=== PATIENT | female | born 1965 | race Caucasian/White ===

== ENCOUNTER 2019-03-17 11:29 | Emergency (ER) | payer BC ==
[2019-03-17 11:35] VITALS: BP 144/86
--- NOTE | 2019-03-17 13:15 | ER Document Report ---
HPI - HPI Time Seen by Provider: 03/17/19 12:33 Pain Level: 2 Context: Patient is a 53-year-old female with a history of COPD, cardiac disease, [place], asthma who presents to the emergency department with a chief complaint of cough. Patient states she has had a cough since Monday with congestion, earache and runny nose. Patient states she was seen by her primary care physician the day and symptoms started and was prescribed prednisone which she is still taking, Fl onase and a nasal spray. Patient reports she does smoke about 1 pack/day. Patient states she was told on Monday that the symptoms are consistent with a viral illness. Patient denies fever. Patient reports the cough does keep her up at night. Patient denies significant shortness of breath or chest pain. - CONSTITUTIONAL Constitutional: REPORTS: Chills. DENIES: Fever - EENT EENT: REPORTS: Ear Pain - right. DENIES: Sore Throat, Eye problems - NEURO Neurology: REPORTS: Headache. DENIES: Weakness, Vision blurred, Dizzinesss / Vertigo - CARDIOVASCULAR Cardiovascular: DENIES: Chest pain - RESPIRATORY Respiratory: REPORTS: Trouble Breathing, Coughing - GASTROINTESTINAL Gastrointestinal: DENIES: Abdominal Pain, Black / Bloody Stools - URINARY Urinary: DENIES: Dysuria, Urgency, Frequency - REPRODUCTIVE Reproductive: DENIES: : - MUSCULOSKELETAL Musculoskeletal: DENIES: Extremity pain Past Medical History - General Information source: Patient - Social History Smoking Status: Current Every Day Smoker Chew tobacco use (# tins/day): No Frequency of alcohol use: None Drug Abuse: None Lives with: Family Family History: None Patient has suicidal ideation: No Patient has homicidal ideation: No - Past Medical History Cardiac Medical History: Reports: Hx Heart Attack, Hx Hypercholesterolemia Pulmonary Medical History: Reports: Hx COPD EENT Medical History: Reports: None Neurological Medical History: Reports: None Endocrine Medical History: Reports: None Renal/ Medical History: Reports: None. Denies: Hx Peritoneal Dialysis Malignancy Medical History: Reports: None GI Medical History: Reports: Hx Gastroesophageal Reflux Disease Musculoskeletal Medical History: Reports None Skin Medical History: Reports None Psychiatric Medical History: Reports: Hx Depression Traumatic Medical History: Reports: None Infectious Medical History: Reports: None Past Surgical History: Reports: Hx Abdominal Surgery - right inguinal hernia, Hx Cardiac Catheterization - x 2 with stent placed, Hx Section - x3, Hx Cholecystectomy, Hx Hysterectomy, Hx Orthopedic Surgery - achilles, carpel tunnel, Hx Tonsillectomy Vertical Provider Document - CONSTITUTIONAL Agree With Documented VS: Yes Exam Limitations: No Limitations General Appearance: No Apparent Distress - INFECTION CONTROL TRAVEL OUTSIDE OF THE [place] IN LAST 30 DAYS: No - HEENT HEENT: Atraumatic, Normocephalic, PERRLA - NECK Neck: Normal Inspection - RESPIRATORY Respiratory: Breath Sounds Normal, No Respiratory Distress - CARDIOVASCULAR Cardiovascular: Regular Rate, Regular Rhythm - GI/ABDOMEN Gastrointestinal: Abdomen Soft, Abdomen Non-Tender, Normal Bowel Sounds - NEURO Level of Consciousness: Awake, Alert, Appropriate - DERM Integumentary: Warm, Dry, No Rash Course - Re-evaluation Re-evalutation: 03/17/19 13:53 Upon initial evaluation patient is sitting upright in no acute distress. Patient's lungs were clear to auscultation. I did inform the patient that at this time there are no signs of infection. I did inform the patient to continue her oral steroids as prescribed, Flonase, nasal sprays and I will give her a p rescription for a cough syrup. I did inform the patient do not drive or operate heavy machinery while on this cough syrup and to only take as needed as it can be extremely irritating. Patient's allergy list does report to codeine. Patient states she has taken Tylenol with codeine and other codeine products before. Patient reports she does not sure why says that she is allergic to this. Patient states she would like to trach prescription. - Vital Signs Vital signs: Temp Pulse Resp BP Pulse Ox 98.6 F 59 L 15 144/86 H 96 03/17/19 11:34 03/17/19 11:34 03/17/19 11:34 03/17/19 11:34 03/17/19 11:34 Discharge - Discharge Clinical Impression: Cough, Bronchitis URI (upper respiratory infection) Qualifiers: URI type: unspecified URI Qualified Code(s): J06.9 - Acute upper respiratory i nfection, unspecified Condition: Stable Disposition: HOME, SELF-CARE Additional Instructions: Today you are seen the emergency department for cough. Your symptoms are consistent with a bronchitis and upper respiratory infection. Please continue to use the prednisone, nasal spray and Flonase as this seems to be helping with your symptoms. I will give you a prescription for a oral cough syrup. Please take this only as prescribed. Please continue to push liquids. If you smoke please stop as this can slow the healing of the bronchitis. Please return to the emergency department or your primary care physician if you develop fever, shortness of breath, chest pain, bloody sputum or if you not feeling better after 7 to 10 days of the symptoms starting as this can develop into pneumonia. You are being prescribed a codeine cough syrup. Please only take as prescribed and only as needed. This can make you drowsy so do not work, drive a vehicle or operate heavy machinery while taking this medication. Please do not take with other sedating medications. Bronchitis You have acute bronchitis. This disease is an infection or inflammation of the air passageways in your lungs. Symptoms usually include cough, low grade fever, shortness of breath, and wheezing. The cough usually persists for a couple of weeks. Most cases of bronchitis get better without antibiotics. We prescribe antibiotics when we believe bacteria are damaging your airways, or if there's high risk the bronchitis will worsen into pneumonia. Increase your fluid intake. A cool mist humidifier may make your lungs more comfortable. An expectorant (cough medicine that loosens phlegm) can help. If you smoke, STOP!!! Recovery from bronchitis can be somewhat slow, but you should see improvement within a day or two. Repeated episodes of bronchitis may result in lung damage -- for example, chronic bronchitis, recurrent pneumonias, or emphysema. Call the doctor if you develop increasing fever, shortness of breath, chest pain, bloody sputum, or otherwise worsen. If you have not improved at all after several days, contact the physician. Prescriptions: Codeine/Promethazine HCl [Promethazine-Codeine Syrup] 5 ml PO Q6 PRN #1 bottle PRN Reason: Forms: Return to Work
== END 2019-03-17 13:25 | disposition home or self-care (01) ==
LOC: ER 11:29
DX: J44.0 Chronic obstructive pulmonary disease with (acute) lower respiratory infection (principal); R05 Cough; R09.81 Nasal congestion; R09.89 Other specified symptoms and signs involving the circulatory and respiratory systems; R68.83 Chills (without fever); R51 Headache; H92.01 Otalgia, right ear; I25.2 Old myocardial infarction; F17.200 Nicotine dependence, unspecified, uncomplicated
CPT/HCPCS: 99283

== ENCOUNTER 2019-03-20 19:22 | Emergency (ER) | payer BC ==
--- NOTE | 2019-03-20 21:54 | EKG REPORT ---
SEVERITY:- NORMAL ECG - SINUS RHYTHM : Confirmed by: Harry Hernandez MD 20-Mar-2019 21:54:01
[2019-03-20 21:55] LABS: ABSOLUTE BASOPHILS # (AUTO) 0.2 10^3/uL (0.0-0.2); ABSOLUTE EOSINOPHILS # (AUTO) 0.4 10^3/uL (0.0-0.6); ABSOLUTE LYMPHOCYTES (AUTO) 5.7 10^3/uL (0.5-4.7); ABSOLUTE MONOCYTES (AUTO) 1.2 10^3/uL (0.1-1.4); ABSOLUTE NEUT (AUTO) 7.9 10^3/uL (1.7-8.2); BASOPHILS % (AUTO) 1.1 % (0-2); EOSINOPHILS % (AUTO) 2.6 % (0-6); HEMATOCRIT 43.5 % (36.0-47.0); HEMOGLOBIN 14.7 g/dL (12.0-15.5); LYMPHOCYTES % (AUTO) 37.3 % (13-45); MEAN CORPUSCULAR HGB CONC 33.8 g/dL (32.0-36.0); MEAN CORPUSCULAR VOLUME 89 fl (80-97); MONOCYTES % (AUTO) 7.9 % (3-13); PLATELET COUNT 382 10^3/uL (150-450); RED CELL DISTRIBUTION WIDTH 13.8 % (11.5-14.0); SEGMENTED NEUTROPHILS % (AUTO) 51.1 % (42-78); TOTAL CELLS COUNTED % (AUTO) 100 %; WHITE BLOOD COUNT 15.4 10^3/uL (4.0-10.5)
[2019-03-20 22:19] LABS: ALBUMIN 4.1 g/dL (3.5-5.0); ALKALINE PHOSPHATASE 77 U/L (38-126); ANION GAP 9 (5-19); ASPARTATE AMINO TRANSFERASE 54 U/L (14-36); BILIRUBIN,DIRECT 0.2 mg/dL (0.0-0.4); BILIRUBIN,TOTAL 0.4 mg/dL (0.2-1.3); BLOOD UREA NITROGEN 14 mg/dL (7-20); CALCIUM 9.5 mg/dL (8.4-10.2); CARBON DIOXIDE 28 mmol/L (22-30); CHLORIDE 100 mmol/L (98-107); CREATINE KINASE 31 U/L (30-135); GLUCOSE 153 mg/dL (75-110); POTASSIUM 3.7 mmol/L (3.6-5.0); TOTAL PROTEIN 7.1 g/dL (6.3-8.2)
--- NOTE | 2019-03-20 22:23 | ER Document Report ---
ED General - General Chief Complaint: Shortness Of Breath Stated Complaint: SHORTNESS OF BREATH Time Seen by Provider: 03/20/19 22:10 TRAVEL OUTSIDE OF THE [place] IN LAST 30 DAYS: No - HPI Notes: Patient was here 3 days ago with cough congestion and upper respiratory nasal congestion as well. She states she was given steroids as well as Azelastine and fluticasone. Smokes daily. She denies any chest pain. She says her cough is nonproductive and feels like she needs to get something up. - Related Data Allergies/Adverse Reactions: cephalexin [From Keflex] Allergy (Verified 03/17/19 11:31) codeine Allergy (Verified 03/17/19 11:31) metronidazole [From Flagyl] Allergy (Verified 03/17/19 11:31) sulfamethoxazole [From Septra] Allergy (Verified 03/17/19 11:31) trimethoprim [From Septra] Allergy (Verified 03/17/19 11:31) Past Medical History - Social History Smoking Status: Current Every Day Smoker Chew tobacco use (# tins/day): No Drug Abuse: None Family History: None Patient has suicidal ideation: No Patient has homicidal ideation: No - Past Medical History Cardiac Medical History: Reports: Hx Heart Attack, Hx Hypercholesterolemia Pulmonary Medical History: Reports: Hx COPD Renal/ Medical History: Denies: Hx Peritoneal Dialysis GI Medical History: Reports: Hx Gastroesophageal Reflux Disease Psychiatric Medical History: Reports: Hx Depression Past Surgical History: Reports: Hx Abdominal Surgery - right inguinal hernia, Hx Cardiac Catheterization - x 2 with stent placed, Hx Section - x3, Hx Cholecystectomy, Hx Hysterectomy, Hx Orthopedic Surgery - achilles, carpel tunnel, Hx Tonsillectomy Review of Systems - Review of Systems Constitutional: No symptoms reported EENT: No symptoms reported Cardiovascular: No symptoms reported Respiratory: See HPI Gastrointestinal: No symptoms reported Genitourinary: No symptoms reported Female Genitourinary: No symptoms reported Musculoskeletal: No symptoms reported Skin: No symptoms reported Hematologic/Lymphatic: No symptoms reported Neurological/Psychological: No symptoms reported Physical Exam - Vital signs Vitals: Temp Pulse Resp BP Pulse Ox 98.8 F 63 24 H 132/63 H 100 03/20/19 19:40 03/20/19 19:40 03/20/19 19:40 03/20/19 19:40 03/20/19 19:40 - General General appearance: Appears well, Alert - HEENT Head: Normocephalic, Atraumatic Eyes: Normal Nasal: Other - Appears congested - Respiratory Respiratory status: No respiratory distress Chest status: Nontender Breath sounds: Other - Mild coarse breath sounds diffusely - Cardiovascular Rhythm: Regular Heart sounds: Normal auscultation Murmur: No - Abdominal Inspection: Normal Distension: No distension Bowel sounds: Normal Course - Re-evaluation Re-evalutation: 03/20/19 22:22 She well-appearing and walking around emergency department room. The cough several times with no production. She smells like smoke. Awaiting work-up at this time. I did discuss smoking cessation with her. Also discussed use of albuterol puffer 1 to 2 puffs every 4 hours she is only using 1 puff every 6 hours at this time. 03/20/19 23:53 All of patient's labs are within normal limits are nonsignificant. Chest x-ray shows no concerning findings. I explained to her she should use her albuterol puffer 2 times every 4 hours as needed. She is also to continue using her nasal inhalers for her sinus congestion. Also explained to her smoking cessation would help her symptoms. - Vital Signs Vital signs: Temp Pulse Resp BP Pulse Ox 98.8 F 63 24 H 132/63 H 100 03/20/19 19:40 03/20/19 19:40 03/20/19 19:40 03/20/19 19:40 03/20/19 19:40 - Laboratory Result Diagrams: 03/20/19 21:35 03/20/19 21:35 Laboratory results interpreted by me: 03/20/19 03/20/19 21:35 21:35 WBC 15.4 H Absolute Lymphs (auto) 5.7 H Sodium 136.8 L Glucose 153 H AST 54 H - Diagnostic Test Radiology reviewed: Reports reviewed - EKG Interpretation by Ut EKG shows normal: Sinus rhythm Rate: Normal Rhythm: NSR - Normal axis, normal intervals, no concerning ST depressions or elevations Discharge - Discharge Clinical Impression: Cough, Shortness of breath Condition: Good Disposition: HOME, SELF-CARE Instructions: Bronchitis ([facility]), Stop Smoking ([facility]) Additional Instructions: Please use your albuterol puffer 2 puffs every 4 hours as needed for symptoms and please try to refrain from smoking. If your symptoms are not improving within the next week please seek medical reevaluation.
[2019-03-20 22:24] LABS: CREATINE KINASE MB 0.39 ng/mL (<4.55); NT PRO BNP 193 pg/mL (5-900)
[2019-03-20 22:26] LABS: TROPONIN I < 0.012 ng/mL
--- NOTE | 2019-03-20 22:57 | RADIOLOGY REPORT (SQ) ---
EXAM DESCRIPTION: XR CHEST 1 VIEW COMPLETED DATE/TME: 03/20/2019 20:58 CLINICAL HISTORY: 53 years, Female, SHORTNESS OF BREATH COMPARISON: None. NUMBER OF VIEWS: 1 TECHNIQUE: Portable chest LIMITATIONS: None. FINDINGS: Heart size is normal. Lungs are clear. No pneumothorax IMPRESSION: Negative chest copyright 2010 [employer]- All Rights Reserved
[2019-03-21 00:07] VITALS: BP 132/81
== END 2019-03-21 00:07 | disposition home or self-care (01) ==
LOC: ER 19:22
DX: R05 Cough (principal); R06.02 Shortness of breath; R09.81 Nasal congestion; F17.200 Nicotine dependence, unspecified, uncomplicated; J44.9 Chronic obstructive pulmonary disease, unspecified
CPT/HCPCS: 36415; 71045; 80053; 82550; 82553; 83880; 84484; 85025; 93005; 93010; 99284

== ENCOUNTER 2019-07-09 20:48 | Emergency (ER) | payer BC ==
[2019-07-09 21:08] VITALS: BP 133/68
--- NOTE | 2019-07-09 21:18 | ER Document Report ---
HPI - HPI Patient complains to provider of: Decreased hearing right ear Time Seen by Provider: 07/09/19 21:12 Onset: Other - Days Onset/Duration: Persistent Pain Level: Denies Context: 54-year-old female presents emergency department with complaints of right ear decreased hearing feeling like it is clogged. 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 She reports she has taken [id number] decongestant and Flonase without relief of symptoms. Denies fever vomiting diarrhea. Denies ear pain. Associated Symptoms: None Exacerbated by: Denies Relieved by: Denies Similar symptoms previously: Yes Recently seen / treated by doctor: No - EENT EENT: REPORTS: Ear Pain. DENIES: Sore Throat, Eye problems - NEURO Neurology: DENIES: Headache, Weakness, Vision blurred, Dizzinesss / Vertigo - CARDIOVASCULAR Cardiovascular: DENIES: Chest pain - RESPIRATORY Respiratory: DENIES: Trouble Breathing, Coughing - GASTROINTESTINAL Gastrointestinal: DENIES: Abdominal Pain, Black / Bloody Stools - URINARY Urinary: DENIES: Dysuria, Urgency, Frequency - REPRODUCTIVE Reproductive: DENIES: : - MUSCULOSKELETAL Musculoskeletal: DENIES: Extremity pain Past Medical History - General Information source: Patient - Social History Smoking Status: Unknown if Ever Smoked Frequency of alcohol use: None Drug Abuse: None Family History: None Patient has suicidal ideation: No Patient has homicidal ideation: No - Past Medical History Cardiac Medical History: Reports: Hx Heart Attack, Hx Hypercholesterolemia Pulmonary Medical History: Reports: Hx COPD Renal/ Medical History: Denies: Hx Peritoneal Dialysis GI Medical History: Reports: Hx Gastroesophageal Reflux Disease Psychiatric Medical History: Reports: Hx Depression Past Surgical History: Reports: Hx Abdominal Surgery - right inguinal hernia, Hx Cardiac Catheterization - x 2 with stent placed, Hx Section - x3, Hx Cholecystectomy, Hx Hysterectomy, Hx Orthopedic Surgery - achilles, carpel tunnel, Hx Tonsillectomy Vertical Provider Document - CONSTITUTIONAL Agree With Documented VS: Yes Exam Limitations: No Limitations General Appearance: WD/WN, No Apparent Distress - INFECTION CONTROL TRAVEL OUTSIDE OF THE [place] IN LAST 30 DAYS: No - HEENT HEENT: Atraumatic, Normocephalic, Tympanic Membrane Bulging - Right ear. negative: Conjuctival Injection, Pharyngeal Erythema, Tympanic Membrane Red - NECK Neck: Normal Inspection, Supple - RESPIRATORY Respiratory: Breath Sounds Normal, No Respiratory Distress - CARDIOVASCULAR Cardiovascular: Regular Rate - MUSCULOSKELETAL/EXTREMETIES Musculoskeletal/Extremeties: ROBERTO JOE - NEURO Level of Consciousness: Awake, Alert, Appropriate - DERM Integumentary: Warm, Dry Course - Re-evaluation Re-evalutation: 07/09/19 21:21 Patient presents with complaints of decreased hearing out of her right ear. Right ear TM bulging. Patient instructed on steroids. Instructed on the importance of follow-up with ENT. She verbalized understanding to all instructions. - Vital Signs Vital signs: Temp Pulse Resp BP Pulse Ox 98.5 F 72 18 133/68 H 96 07/09/19 21:06 07/09/19 21:06 07/09/19 21:06 07/09/19 21:06 07/09/19 21:06 Discharge - Discharge Clinical Impression: Decreased hearing of right ear Condition: Stable Disposition: HOME, SELF-CARE Instructions: ENT, Steroid Medication Additional Instructions: *You have been evaluated for decreased hearing in right ear *Take medication as prescribed *Follow up with a primary care provider within a week for recheck Call the ENT tomorrow for an appointment *Return to ED for worsening condition, changes, needs Monitor your blood pressure. Your blood pressure was elevated today. This may be because you were anxious, in pain or because you need medication. It is important to follow up with your primary care provider for full evaluation. Prescriptions: Prednisone [Deltasone 10 mg Tablet] 10 mg PO ASDIR PRN #21 tablet PRN Reason: Forms: Elevated Blood Pressure Referrals: ISAIAS RETANA DO [ASSOCIATE] - Follow up as needed ANU WELLS MD [ACTIVE STAFF] - Follow up as needed
== END 2019-07-09 21:21 | disposition home or self-care (01) ==
LOC: ER 20:48
DX: H91.93 Unspecified hearing loss, bilateral (principal); H92.09 Otalgia, unspecified ear; J44.9 Chronic obstructive pulmonary disease, unspecified
CPT/HCPCS: 99283